=== PATIENT | female | born 1985 | race Caucasian/White ===

== ENCOUNTER → 2021-02-27 | Outpatient (CLI) | payer OTHER | LOC: MC.RAD 09:04 | DX: N63.0 Unspecified lump in unspecified breast (principal) ==

== ENCOUNTER 2021-11-29 20:04 | Emergency (ER) | payer OTHER ==
[~2021-11-29] VITALS: Ht 162.6 cm; Wt 61.4 kg
[2021-11-29 20:10] VITALS: TEMP 98
[2021-11-29] MEDS ORDERED: BLISOVI FE 1-21 EACH PO (21:22)
[2021-11-29] MEDS ORDERED: EFFEXOR XR37.5 MG/CA PO (21:22)
[2021-11-29] MEDS ORDERED: BUSPAR DIVIDOSE15 MG PO (21:22)
[2021-11-29] MEDS ORDERED: ZOFRAN ODT4 MG PO (22:13)
[2021-11-29 22:26] VITALS: BP 108/76; PULSE 60
== END 2021-11-29 22:27 | disposition home or self-care (01) ==
LOC: COL.ER 20:04
DX: H53.149 Visual discomfort, unspecified (principal); R11.2 Nausea with vomiting, unspecified